=== PATIENT | female | born 1950 | race Caucasian/White ===

== ENCOUNTER → 2016-10-30 | Outpatient (CLI) | payer MEDICARE, OTHER ==
--- NOTE | 2016-10-30 10:07 | REPMRS ---
Patient History The patient states she had a clinical breast exam in October 2016.Patient is postmenopausal. Family history of ovarian cancer in paternal aunt at age 50 or over and breast cancer in maternal aunt under age 50. Took hormonal contraceptives for 5 years. Took unspecified hormones for 10 years. Digital Mammo Screening Bilat: October 30, 2016 - Exam #: [id number] Bilateral CC and MLO view(s) were taken. Technologist: Arcelia Haque, Technologist Prior study comparison: October 25, 2015, bilateral digital mammo screening bilat performed at [facility]. October 14, 2014, bilateral digital mammo screening bilat performed at [facility]. FINDINGS: The breast tissue is heterogeneously dense. This may lower the sensitivity of mammography. There has been no change in the appearance of the mammogram from the prior studies. There is a moderate amount of residual fibroglandular tissue which is fairly symmetric. There is no interval development of dominant mass, areas of architectural distortion, or clustered microcalcification typical of malignancy. ASSESSMENT: BI-RADS/ACR category 1 mammogram. Negative. Recommendation Routine screening mammogram in 1 year (for women over age 40). This mammogram was interpreted with the aid of an FDA-approved computer-aided dectection system. Electronically Signed By: Rickey Canales MD 10/30/16 1007
== END ==
LOC: M RAD 09:12
PROVIDERS: ATTEND Obstetrics & Gynecology
DX: Z12.31 Encounter for screening mammogram for malignant neoplasm of breast (principal)

== ENCOUNTER → 2017-11-05 | Outpatient (CLI) | payer MEDICARE, OTHER | LOC: M RAD 07:44 | DX: Z12.31 Encounter for screening mammogram for malignant neoplasm of breast (principal) | CPT/HCPCS: 77067 ==

== ENCOUNTER → 2019-02-18 | Outpatient (CLI) | payer MEDICARE, OTHER ==
--- NOTE | 2019-02-18 08:02 | REPMRS ---
Patient History The patient states she had a clinical breast exam in 2018. Patient is postmenopausal. Family history of ovarian cancer at age 50 or over in paternal aunt, breast cancer under age 50 in maternal aunt. Took hormonal contraceptives for 5 years. Taking unspecified hormones for 1 year. Digital Mammo Screening Bilat: February 18, 2019 - Exam #: [id number] Bilateral CC and MLO view(s) were taken. Technologist: Arcelia Haque, Technologist Prior study comparison: November 05, 2017, bilateral digital mammo screening bilat performed at [facility]. October 30, 2016, bilateral digital mammo screening bilat performed at [facility]. October 25, 2015, bilateral digital mammo screening bilat performed at [facility]. FINDINGS: The breast tissue is heterogeneously dense. This may lower the sensitivity of mammography. There is a moderate amount of heterogeneously dense fibroglandular tissue which is fairly symmetric. There is no interval development of dominant mass, architectural distortion, or grouped microcalcification typical of malignancy. There has been no change in the appearance of the mammogram from the prior studies. Assessment: BI-RADS/ACR category 1 mammogram. Negative Mammogram. Recommendation Routine screening mammogram of both breasts in 1 year (for women over age 40). This patient's Lifetime Breast Cancer RIsk is estimated at 6.7 %. This mammogram was interpreted with the aid of an FDA-approved computer-aided dectection system. Electronically Signed By: Hever Montoya MD 02/18/19 0802
== END ==
LOC: M RAD 07:38
PROVIDERS: ATTEND Family Medicine
DX: Z12.31 Encounter for screening mammogram for malignant neoplasm of breast (principal); Z80.41 Family history of malignant neoplasm of ovary; Z80.3 Family history of malignant neoplasm of breast

== ENCOUNTER → 2020-04-13 | Outpatient (CLI) | payer MEDICARE, BC ==
--- NOTE | 2020-04-13 09:33 | REPMRS ---
Patient History The patient states she had a clinical breast exam in March 2020. Family history of ovarian cancer at age 50 or over in paternal aunt, breast cancer under age 50 in maternal aunt. Took hormonal contraceptives for 5 years. Taking unspecified hormones for 1 year. Digital Woman Screen Mammo: April 13, 2020 - Exam #: [id number] Bilateral CC and MLO view(s) were taken. Technologist: Karoline Castro, Technologist Prior study comparison: February 18, 2019, bilateral digital mammo screening bilat, performed at [facility]. November 05, 2017, bilateral digital mammo screening bilat, performed at [facility]. October 30, 2016, bilateral digital mammo screening bilat, performed at [facility]. FINDINGS: The breast tissue is heterogeneously dense. This may lower the sensitivity of mammography. The Volpara volumetric breast density category is: C. There is a moderate amount of heterogeneously dense fibroglandular tissue which is fairly symmetric. There is no interval development of dominant mass, architectural distortion, or grouped microcalcification typical of malignancy. There has been no change in the appearance of the mammogram from the prior studies. 3-D tomosynthesis shows no additional findings. Assessment: BI-RADS/ACR category 1 mammogram. Negative Mammogram. Recommendation Routine screening mammogram of both breasts in 1 year (for women over age 40). This patient's [facility] Lifetime Breast Cancer RIsk is estimated at 6.3 %. This mammogram was interpreted with the aid of an FDA-approved computer-aided dectection system. Electronically Signed By: Hever Montoya MD 04/13/20 0960
== END ==
LOC: M WHC 07:44
PROVIDERS: ATTEND Family Medicine
DX: Z12.31 Encounter for screening mammogram for malignant neoplasm of breast (principal); Z80.3 Family history of malignant neoplasm of breast; Z80.41 Family history of malignant neoplasm of ovary

== ENCOUNTER → 2020-07-10 | Outpatient (REF) | payer MEDICARE, BC ==
[~2020-07-10] MED LIST: ASPI81TA26 PO; BIOT1CAP2 PO; CRES10TA PO; D31000TA2 PO; DILT180C78 PO; DULO1CAP4 PO; GLUC500T PO; LEVO75TA4 PO; METO50TA7 PO; NEXI40CA PO; OMEG1CAP16 PO
[2020-07-10 19:44] LABS: MALB URINE SIEMENS 17.9 MG/L; MAU/CREAT RATIO 15.2 MCG/MG (0.0-30.0)
== END ==
LOC: M LAB REF 16:50
PROVIDERS: ATTEND Internal Medicine Endocrinology, Diabetes & Metabolism
DX: E11.9 Type 2 diabetes mellitus without complications (principal)

== ENCOUNTER → 2020-07-15 | Outpatient (CLI) | payer MEDICARE, BC | LOC: M LABSMTC 09:15 | PROVIDERS: ATTEND Anesthesiology | DX: Z01.812 Encounter for preprocedural laboratory examination (principal); Z20.822 Contact with and (suspected) exposure to COVID-19 ==

== ENCOUNTER 2020-07-20 08:28 | Day surgery (SDC) | payer MEDICARE, BC ==
[~2020-07-20] VITALS: Ht 160 cm; Wt 60.3 kg
[~2020-07-20 08:28] MED LIST changes: +CEFUROXIME 1MG/0.1ML INTRACAMERAL INJ As Ordered ONE; +DUOVISC (0.50ML VISCOAT/0.55ML PROVISC) OPHTH KIT As Ordered ONE; +OFLOXACIN 0.3 % (OCUFLOX) OPTH SOL 5ML OD ONE; +PHENYLEPHRINE 2.5% OPHTH SOL 2ML OD ONE; +POVIDONE-IODINE 5% OPHTH PREP SOL 30ML As Ordered ONE; +PROPARACAINE 0.5% OPHTH SOL 15ML OD ONE; +TROPICAMIDE 1% OPHTH SOLN 2ML OD ONE
[2020-07-20] MEDS ORDERED: MIDAZOLAM INJ 2MG/2ML VIAL (J2250 PER 1MG) As Ordered ONE (10:14)
[2020-07-20] MEDS ORDERED: fentaNYL 100 MCG/2 ML INJECTION (J3010) As Ordered ONE (10:14)
[2020-07-20] MEDS ORDERED: BSS IRR 500ML/OMIDRIA 4ML IRR BAG (OR ONLY) As Ordered ONE (10:28)
[2020-07-20 11:55] VITALS: BP 122/75
[2020-07-20] MEDS ORDERED: ONDANSETRON 4 MG TAB PO ONE (12:10)
== END 2020-07-20 12:20 | disposition home or self-care (01) ==
LOC: M SDC 08:28
PROVIDERS: ATTEND Ophthalmology
DX: H25.11 Age-related nuclear cataract, right eye (principal); H40.1110 Primary open-angle glaucoma, right eye, stage unspecified; E11.9 Type 2 diabetes mellitus without complications; I10 Essential (primary) hypertension; E03.9 Hypothyroidism, unspecified; F41.9 Anxiety disorder, unspecified; E78.5 Hyperlipidemia, unspecified; K21.9 Gastro-esophageal reflux disease without esophagitis; Z79.82 Long term (current) use of aspirin; Z79.899 Other long term (current) drug therapy; Z88.5 Allergy status to narcotic agent; Z88.1 Allergy status to other antibiotic agents; Z88.8 Allergy status to other drugs, medicaments and biological substances
CPT/HCPCS: 65820; 66174; 66984; J1097; J2250; J3010; V2632

== ENCOUNTER → 2020-07-22 | Outpatient (CLI) | payer MEDICARE, BC ==
[~2020-07-22] MED LIST changes: -CEFUROXIME 1MG/0.1ML INTRACAMERAL INJ As Ordered ONE; -DUOVISC (0.50ML VISCOAT/0.55ML PROVISC) OPHTH KIT As Ordered ONE; -OFLOXACIN 0.3 % (OCUFLOX) OPTH SOL 5ML OD ONE; -PHENYLEPHRINE 2.5% OPHTH SOL 2ML OD ONE; -POVIDONE-IODINE 5% OPHTH PREP SOL 30ML As Ordered ONE; -PROPARACAINE 0.5% OPHTH SOL 15ML OD ONE; -TROPICAMIDE 1% OPHTH SOLN 2ML OD ONE
== END ==
LOC: M LABSMTC 09:12
PROVIDERS: ATTEND Anesthesiology
DX: Z01.812 Encounter for preprocedural laboratory examination (principal); Z20.822 Contact with and (suspected) exposure to COVID-19

== ENCOUNTER 2020-07-27 06:23 | Day surgery (SDC) | payer MEDICARE, BC ==
[~2020-07-27] VITALS: Ht 160 cm; Wt 61.1 kg
[2020-07-27] MEDS ORDERED: CEFUROXIME 1MG/0.1ML INTRACAMERAL INJ As Ordered ONE (06:48)
[2020-07-27] MEDS ORDERED: DUOVISC (0.50ML VISCOAT/0.55ML PROVISC) OPHTH KIT As Ordered ONE (06:48)
[2020-07-27] MEDS ORDERED: BSS IRR 500ML/OMIDRIA 4ML IRR BAG (OR ONLY) As Ordered ONE (06:53)
[2020-07-27] MEDS ORDERED: PROPARACAINE 0.5% OPHTH SOL 15ML OS ONE (07:00)
[2020-07-27] MEDS ORDERED: TROPICAMIDE 1% OPHTH SOLN 2ML OS ONE (07:00)
[2020-07-27] MEDS ORDERED: PHENYLEPHRINE 2.5% OPHTH SOL 2ML OS ONE (07:00)
[2020-07-27] MEDS ORDERED: OFLOXACIN 0.3 % (OCUFLOX) OPTH SOL 5ML OS ONE (07:00)
[2020-07-27] MEDS ORDERED: MIDAZOLAM INJ 2MG/2ML VIAL (J2250 PER 1MG) As Ordered ONE (07:21)
[2020-07-27] MEDS ORDERED: fentaNYL 100 MCG/2 ML INJECTION (J3010) As Ordered ONE (07:21)
[2020-07-27] MEDS ORDERED: ONDANSETRON 4 MG ORAL DISINTEGRATING TAB PO ONE (08:40)
[2020-07-27 08:57] VITALS: BP 135/80
--- NOTE | 2020-07-31 15:18 | RO ---
OPERATIVE NOTE DATE OF OPERATION: 07/27/2020 PREOPERATIVE DIAGNOSIS: 1. Visually significant nuclear sclerotic cataract, left eye 2. Primary open angle glaucoma, moderate stage left eye POSTOPERATIVE DIAGNOSIS: 1. Same PROCEDURE: 1. Extracapsular cataract removal with insertion of intraocular lens implant, AU00T0 21.5D of the left eye 2. Transluminal canal dilation with ab interno trabeculotomy with use of OMNI device, left eye IMPLANT: AU00T0 21.5. SURGEON: William Fong DO. ANESTHESIA: Local (Omidria) with MAC COMPLICATIONS: None. INDICATIONS FOR SURGERY: 1. Blurred vision affecting patient's activities of daily living. DESCRIPTION OF PROCEDURE: The patient was seen in the preoperative area and properly identified. The correct operative eye was identified and marked. The patient received topical anesthetic, antibiotics, and topical dilating drops. The patient was then transferred to the operating room. The correct side was re-identified and a timeout was performed. The eye was prepped and draped in a sterile fashion. The eyelids were isolated with Tegaderm tape and the lids were held open with an adjustable speculum. A 1.0 mm paracentesis incision was made. Omidria was injected into the anterior chamber. Viscoelastic was then injected into the anterior chamber through the paracentesis. Using a 2.4 mm sharp-tipped keratome, the anterior chamber was entered via a temporal clear cornea incision. A continuous curvilinear capsulorhexis was created with Utrata forceps. Hydrodissection was performed with BSS on a blunt cannula until the nucleus was able to rotate freely. The crystalline lens was phacoemulsified and aspirated. Irrigation / aspiration was used to remove the cortical material. Cohesive viscoelastic was placed into the capsular bag to deepen it. The implant was placed into the capsular bag and allowed to unfold. Placement was confirmed by visualizing the anterior capsulorhexis. Additional viscoelastic was placed in the anterior chamber, and on top of the cornea. The head was untapped, and rotated away. The microscope was rotated to 45 degrees. A gonioprism was placed on the cornea and the angle was visualized. The OMNI catheter was placed into the canal then withdrawn, this was then performed in the opposite direction. The catheter was then reinserted in a counterclockwise direction, and a gentle goniotomy was performed. The OMNI was withdrawn. No hyphema was present. The head was placed face up and the microscope to 0 degrees. Irrigation / aspiration was used to remove the viscoelastic. The clear corneal incision was hydrated with BSS on a blunt cannula. The lens was well positioned. Cefuroxime was injected into the anterior chamber. The incisions were then tested for leaks and found to be negative. The eye was then palpated for appropriate pressure and adjusted accordingly with BSS. The eyelid speculum was then carefully removed. A shield was placed over the eye. The patient tolerated the procedure well and was discharged to the recovery unit in stable condition. MARY LOU
== END 2020-07-27 08:58 | disposition home or self-care (01) ==
LOC: M SDC 06:23
PROVIDERS: ATTEND Ophthalmology
DX: H25.12 Age-related nuclear cataract, left eye (principal); H40.1120 Primary open-angle glaucoma, left eye, stage unspecified; I10 Essential (primary) hypertension; E11.9 Type 2 diabetes mellitus without complications; E03.9 Hypothyroidism, unspecified; K21.9 Gastro-esophageal reflux disease without esophagitis; F41.9 Anxiety disorder, unspecified; Z88.5 Allergy status to narcotic agent; Z88.1 Allergy status to other antibiotic agents; Z79.82 Long term (current) use of aspirin; Z79.84 Long term (current) use of oral hypoglycemic drugs; Z79.899 Other long term (current) drug therapy
CPT/HCPCS: 65820; 66174; 66984; J1097; J2250; J3010; Q0162; V2632

== ENCOUNTER → 2021-02-19 | Outpatient (REF) | payer MEDICARE, BC | LOC: M SFHCWAGY 13:02 | PROVIDERS: ATTEND Advanced Practice Midwife | DX: R30.0 Dysuria (principal) | CPT/HCPCS: 87088; 87186; G0463 ==

== ENCOUNTER → 2021-02-27 | Outpatient (REF) | payer MEDICARE, BC ==
[2021-02-27 13:44] LABS: APPEARANCE, URINE CLEAR (CLEAR); BACTERIA, URINE AUTO 1+ (NEGATIVE); BILIRUBIN, URINE AUTO NEGATIVE (NEGATIVE); BLOOD, URINE BLOOD 1+ (NEGATIVE); CALCIUM OXALATE CRYSTALS SMALL; COLOR, URINE YELLOW (YELLOW); GLUCOSE, URINE (UA) AUTO NEGATIVE (NEGATIVE); KETONE, URINE AUTO NEGATIVE (NEGATIVE); LEUKOCYTE ESTERASE, URINE AUTO 2+ (NEGATIVE); NITRITE, URINE AUTO NEGATIVE (NEGATIVE); PROTEIN, URINE AUTO NEGATIVE (NEGATIVE); RBC, URINE AUTO 13 /HPF (0-3); SPECIFIC GRAVITY URINE AUTO 1.016 (1.002-1.035); SQUAMOUS EPITHELIAL CELL UR AU 0 /HPF (0-6); UROBILINOGEN, URINE AUTO 0.2 mg/dL (0.0-2.0); WBC, URINE AUTO 45 /HPF (0-3)
== END ==
LOC: M SFHCWAGY 12:45
PROVIDERS: ATTEND Nurse Practitioner Women's Health
DX: R30.0 Dysuria (principal)
CPT/HCPCS: 81001; 87086; G0463

== ENCOUNTER → 2021-03-06 | Outpatient (REF) | payer MEDICARE, BC | LOC: M LAB REF 17:20 | PROVIDERS: ATTEND Family Medicine | DX: N39.0 Urinary tract infection, site not specified (principal) ==

== ENCOUNTER → 2021-07-10 | Outpatient (CLI) | payer MEDICARE, BC ==
[~2021-07-10] MED LIST changes: -D31000TA2 PO; +VITA100093 PO
== END ==
LOC: M WHC 08:49
PROVIDERS: ATTEND Nurse Practitioner Family
DX: Z12.31 Encounter for screening mammogram for malignant neoplasm of breast (principal); M89.9 Disorder of bone, unspecified

== ENCOUNTER → 2022-04-15 | Outpatient (CLI) | payer MEDICARE, BC | LOC: M RAD 12:43 | PROVIDERS: ATTEND Nurse Practitioner Family | DX: M25.562 Pain in left knee (principal) ==

== ENCOUNTER → 2022-11-27 | Outpatient (CLI) | payer MEDICARE, BC | LOC: M WHC 08:19 | PROVIDERS: ATTEND Family Medicine | DX: Z12.31 Encounter for screening mammogram for malignant neoplasm of breast (principal) ==

== ENCOUNTER → 2023-08-01 | Outpatient (CLI) | payer MEDICARE, BC | LOC: M WHC 12:18 | PROVIDERS: ATTEND Internal Medicine Endocrinology, Diabetes & Metabolism | DX: M81.0 Age-related osteoporosis without current pathological fracture (principal) ==

== ENCOUNTER → 2023-12-03 | Outpatient (CLI) | payer MEDICARE, BC | LOC: M WHC 07:54 | PROVIDERS: ATTEND Family Medicine | DX: Z12.31 Encounter for screening mammogram for malignant neoplasm of breast (principal) ==

== ENCOUNTER → 2024-08-10 | Outpatient (CLI) | payer MEDICARE, BC | LOC: M WHC 09:07 | PROVIDERS: ATTEND Nurse Practitioner Family | DX: M81.0 Age-related osteoporosis without current pathological fracture (principal) ==

== ENCOUNTER → 2024-12-06 | Outpatient (CLI) | payer MEDICARE, BC | LOC: M WHC 08:35 | PROVIDERS: ATTEND Family Medicine | DX: Z12.31 Encounter for screening mammogram for malignant neoplasm of breast (principal); R92.343 Mammographic extreme density, bilateral breasts ==